=== PATIENT | female | born 1945 | race Caucasian/White ===

== ENCOUNTER 2017-04-03 20:28 | Emergency (ER) | payer OTHER ==
[2017-04-03] MEDS: DEXAMETHASONE 10 MG/ML 1 ML INJ IM (22:09)
[2017-04-03] MEDS: IPRATROPIUM (NEB) 0.5 MG/2.5 ML AMP INH (22:29)
[2017-04-03] MEDS: ALBUTEROL 0.5% (NEB) 2.5 MG/0.5 ML AMP INH (22:30)
== END 2017-04-04 00:57 | disposition home or self-care (01) ==
LOC: FTE 04-04 00:57
DX: J45.901 Unspecified asthma with (acute) exacerbation (principal); R07.9 Chest pain, unspecified
CPT/HCPCS: 71045; 93005; 94644; 96372; 99284-25

== ENCOUNTER 2017-04-22 18:32 | Observation (INO) | payer OTHER ==
[2017-04-22 21:41] LABS: ADD MAN DIFF? NO
[2017-04-22] MEDS: DEXAMETHASONE 10 MG/ML 1 ML INJ IV (21:45)
[2017-04-22] MEDS: MAGNESIUM SULFATE 2 GM/50 ML 50 ML IVPB (21:45)
[2017-04-22 21:47] LABS: WHITE BLOOD COUNT 9.5 10^3/ul (4.8-10.8)
[2017-04-22 21:47] LABS: BASOPHIL # 0.1 10^3/ul (0.0-0.1); BASOPHILS % 0.9 % (0.0-2.0); EOSINOPHILS % 10.3 % (0.0-7.0); HEMATOCRIT 40.4 % (37.0-47.0); HEMOGLOBIN 13.5 g/dl (12.0-16.0); LYMPHOCYTES # 2.4 10^3/ul (0.8-2.9); LYMPHOCYTES % 25.6 % (15.0-51.0); MEAN CORPUSCULAR HGB CONC 33.4 g/dl (32.0-37.0); MEAN CORPUSCULAR VOLUME 89.8 fl (82.0-101.0); MEAN PLATELET VOLUME 10.6 fl (7.4-10.4); MONOCYTE # 0.6 10^3/ul (0.3-0.9); NEUTROPHIL # 5.4 10^3/ul (1.6-7.5); PLATELET COUNT 255 10^3/UL (140-415); RED CELL DISTRIBUTION WIDTH 12.4 % (11.5-14.5)
[2017-04-22] MEDS: IPRATROPIUM (NEB) 0.5 MG/2.5 ML AMP NEB (21:59)
[2017-04-22] MEDS: ALBUTEROL 0.5% (NEB) 2.5 MG/0.5 ML AMP NEB (22:00)
[2017-04-22 22:21] LABS: BLOOD UREA NITROGEN 17 mg/dl (7-20); CALCIUM 9.9 mg/dl (8.4-10.2); CARBON DIOXIDE 27 mmol/L (21-31); CHLORIDE 104 mmol/L (97-110); CREATININE 0.73 mg/dl (0.44-1.00); GLUCOSE 119 mg/dl (70-220); SODIUM 142 mmol/L (135-144)
[2017-04-22 22:33] LABS: ANION GAP 15 (8-16)
[2017-04-22 22:39] LABS: POTASSIUM 4.3 mmol/L (3.5-5.1)
[2017-04-22] MEDS: ALBUTEROL 0.083% (NEB) 2.5 MG/3 ML AMP NEB (22:42)
[2017-04-23] MEDS ORDERED: NACL 0.9% 3 ML SYG IV
[2017-04-23] MEDS ORDERED: DOCUSATE SODIUM 100 MG CAP PO
[2017-04-23] MEDS ORDERED: BISACODYL (EC) 5 MG TAB PO
[2017-04-23] MEDS ORDERED: ACETAMINOPHEN 325 MG TAB PO ×2
[2017-04-23] MEDS ORDERED: ONDANSETRON 4 MG INJ IV ×2
[2017-04-23] MEDS: METHYLPREDNISOLONE 40 MG INJ IV (00:20)
[2017-04-23 00:37] LABS: B-TYPE NATRIURETIC PEPTIDE 46 PG/ML (0-125)
[2017-04-23] MEDS: ALBUTEROL 0.083% (NEB) 2.5 MG/3 ML AMP HHN ×5 (01:23→16:25)
[2017-04-23] MEDS: hydrALAzine 20 MG INJ IV (03:11)
[2017-04-23] MEDS: PANTOPRAZOLE (EC) 40 MG TAB PO (05:14)
[2017-04-23] MEDS: predniSONE 20 MG TAB PO (08:55)
[2017-04-23 09:27] LABS: ADD MAN DIFF? NO
[2017-04-23 09:30] LABS: BASOPHILS % 0.1 % (0.0-2.0); EOSINOPHILS % 0.1 % (0.0-7.0); HEMATOCRIT 40.8 % (37.0-47.0); LYMPHOCYTES % 12.6 % (15.0-51.0); MEAN CORPUSCULAR HEMOGLOBIN 30.5 pg (29.0-33.0); MEAN CORPUSCULAR HGB CONC 34.3 g/dl (32.0-37.0); MEAN CORPUSCULAR VOLUME 88.9 fl (82.0-101.0); MONOCYTES % 0.4 % (0.0-11.0); NEUTROPHIL # 6.8 10^3/ul (1.6-7.5); NEUTROPHILS % 86.4 % (39.0-77.0); PLATELET COUNT 277 10^3/UL (140-415); RED BLOOD COUNT 4.59 10^6/ul (4.20-5.40); RED CELL DISTRIBUTION WIDTH 12.3 % (11.5-14.5)
[2017-04-23 09:30] LABS: WHITE BLOOD COUNT 7.9 10^3/ul (4.8-10.8)
[2017-04-23 09:47] LABS: ALANINE AMINOTRANSFERASE 66 IU/L (13-69); ALBUMIN 4.9 g/dl (3.3-4.9); ALBUMIN/GLOBULIN RATIO 1.48; ALKALINE PHOSPHATASE 105 IU/L (42-121); ANION GAP 20 (8-16); ASPARTATE AMINO TRANSFERASE 36 IU/L (15-46); BILIRUBIN,INDIRECT 0.6 mg/dl (0-1.1); BILIRUBIN,TOTAL 0.6 mg/dl (0.2-1.3); BLOOD UREA NITROGEN 13 mg/dl (7-20); CALCIUM 9.8 mg/dl (8.4-10.2); CARBON DIOXIDE 23 mmol/L (21-31); CHLORIDE 103 mmol/L (97-110); CHOL/HDL RATIO 4.2 RATIO; CHOLESTEROL 236 mg/dl (100-200); CREATININE 0.62 mg/dl (0.44-1.00); GLUCOSE 244 mg/dl (70-220); HDL CHOLESTEROL 56 mg/dl (33-92); LDL CHOLESTEROL,CALCULATED 168 mg/dl; POTASSIUM 4.4 mmol/L (3.5-5.1); SODIUM 142 mmol/L (135-144); TOTAL PROTEIN 8.2 g/dl (6.1-8.1); TRIGLYCERIDES 60 mg/dl (0-149)
[2017-04-23 10:29] LABS: HEMOGLOBIN A1C 6.7 % (0-5.9)
[2017-04-23 12:49] LABS: THYROID STIMULATING HORMONE 0.056 MIU/L (0.465-4.680)
== END 2017-04-23 17:55 | disposition home or self-care (01) ==
LOC: E/R 18:32 → MS4 23:48
DX: J45.901 Unspecified asthma with (acute) exacerbation (principal)
CPT/HCPCS: 71045; 80048; 80053; 80061; 83036; 83880; 84443; 85025; 93005; 94640; 94644; 94664; 96374; 96375; 99291-25; G0378